=== PATIENT | male | born 1975 | race Hispanic/Latino ===

== ENCOUNTER 2020-10-08 12:01 | Emergency (ER) | payer BC, OTHER ==
[2020-10-08] MEDS ORDERED: NA CHLORIDE 0.9% 1,000 ML ONE (13:08)
[2020-10-08] MEDS ORDERED: HYDROCODONE/CHLORPHEN 5 ML/OSYR ONE (13:08)
[2020-10-08] MEDS ORDERED: ONDANSETRON 4 MG/2 ML VIAL ONE (13:08)
[2020-10-08 13:28] LABS: Absolute Lymphocytes (CBC) 0.7 K/uL (0.7-4.9); Basophils % 0.3 % (0-1.3); Hematocrit 47.6 % (39.6-49.0); Lymphocytes % 12.7 % (15.3-44.8); MPV 8.1 fL (7.6-11.3); RBC Red Blood Cell Count 5.55 M/uL (4.33-5.43)
--- NOTE | 2020-10-08 13:52 | RAD REPORT ---
EXAM DESCRIPTION: Claudia Single View10/08/2020 1:38 pm CLINICAL HISTORY: Cough COMPARISON: none FINDINGS: Mild bilateral pulmonary opacities suspected. Heart is normal size IMPRESSION: Mild bilateral pulmonary opacities suspected. This probably indicates a mild pneumonia
[2020-10-08 14:01] LABS: ALT/SGPT 74 U/L (12-78); AST/SGOT 57 U/L (15-37); Albumin 3.6 g/dL (3.4-5.0); Alkaline Phosphatase 65 U/L (45-117); BUN Blood Urea Nitrogen 10 mg/dL (7-18); Bicarbonate 27 mmol/L (21-32); Bilirubin Total 0.8 mg/dL (0.2-1.0); Glucose Level 99 mg/dL (74-106); Potassium 3.7 mmol/L (3.5-5.1); Protein, Total 8.1 g/dL (6.4-8.2); Sodium Level 138 mmol/L (136-145)
[2020-10-08 14:14] LABS: Urine Blood Negative (Negative); Urine Glucose Negative (Negative); Urine Protein Negative (Negative); Urine pH 6.5 (5.0-7.0)
--- NOTE | 2020-10-08 15:33 | ER ---
Nurse's Notes [facility] Name: Héctor Tee Age: 45 yrs Sex: Male : 1975 Arrival Date: 10/08/2020 Time: 12:07 Bed 19 Private MD: Diagnosis: Pneumonia due to SARS-associated coronavirus Presentation: 10/08 12:09 Chief complaint: Cough, congestion, SOB, nausea, diarrhea, and fever x 1 week. Tested hb COVID + 10/03. Coronavirus screen: Client reports previous positive COVID test result. Date of collection: October 03, 2020. Ebola Screen: No symptoms or risks identified at this time. Initial Sepsis Screen: Does the patient meet any 2 criteria? No. Patient's initial sepsis screen is negative. Does the patient have a suspected source of infection? No. Patient's initial sepsis screen is negative. Risk Assessment: Do you want to hurt yourself or someone else? Patient reports no desire to harm self or others. Onset of symptoms was October 01, 2020. 12:09 Method Of Arrival: Ambulatory hb 12:09 Acuity: DANII 3 hb Historical: - Allergies: 12:11 No Known Allergies; hb - Home Meds: 12:11 None [Active]; hb - PMHx: 12:11 None; hb - PSHx: 12:11 None; hb - Immunization history:: Adult Immunizations up to date. - Social history:: Smoking status: Patient denies any tobacco usage or history of. Screenin:32 Abuse screen: Denies threats or abuse. Denies injuries from another. Nutritional zb screening: No deficits noted. Tuberculosis screening: No symptoms or risk factors identified. Fall Risk None identified. Assessment: 13:32 General: Appears in no apparent distress. uncomfortable, Behavior is calm, cooperative, zb appropriate for age, Reports chills for >3 days, fever for > 3 days, feeling ill for > 3 days, fatigue for >3 days. Pain: Complains of pain in chest. Neuro: Level of Consciousness is awake, alert, obeys commands, Oriented to person, place, time, situation. Cardiovascular: Patient's skin is warm and dry. Respiratory: Reports shortness of breath at rest Airway is patent Respiratory effort is even, unlabored, Respiratory pattern is regular, symmetrical. GI: Abdomen is flat, Bowel sounds present X 4 quads. hyperactive in right upper quadrant, left upper quadrant, right lower quadrant and left lower quadrant Reports diarrhea. Derm: Skin is intact, is healthy with good turgor, Skin is dry, Skin is normal, Skin temperature is warm. Musculoskeletal: Circulation, motion, and sensation intact. Range of motion: intact in all extremities. 14:30 Reassessment: Patient appears in no apparent distress at this time. Patient and/or zb family updated on plan of care and expected duration. Pain level reassessed. Patient is alert, oriented x 3, equal unlabored respirations, skin warm/dry/pink. 15:28 Reassessment: Patient appears in no apparent distress at this time. Patient and/or zb family updated on plan of care and expected duration. Pain level reassessed. Patient is alert, oriented x 3, equal unlabored respirations, skin warm/dry/pink. Vital Signs: 12:09 BP 132 / 92; Pulse 102; Resp 20; Temp 98.2; Pulse Ox 100% on R/A; Pain 8/10; hb 13:46 BP 123 / 60; Pulse 89; Resp 16; Pulse Ox 98% on R/A; zb 14:09 BP 120 / 80; Pulse 98; Resp 18; Temp 99.4(O); Pulse Ox 98% on R/A; zb 15:00 BP 128 / 80; Pulse 89; Resp 18; Pulse Ox 100% on R/A; zb ED Course: 12:07 Patient arrived in ED. ds1 12:11 Triage completed. hb 12:11 Arm band placed on. hb 12:26 Huma Vogt MD is Attending Physician. ma2 12:26 Balwinder Marte NP is PHCP. pm1 12:32 Charity Martinez RN is Primary Nurse. zb 12:50 Strep swab sent to lab. Inserted saline lock: 20 gauge in right antecubital area, using jp3 aseptic technique. Blood collected. 12:50 Patient maintains SpO2 saturation greater than 95% on room air. jp3 13:03 Bed in low position. Call light in reach. Side rails up X 1. Verbal reassurance given. jp3 Pulse ox on. NIBP on. 13:38 Chest Single View XRAY In Process Unspecified. EDMS 15:54 No provider procedures requiring assistance completed. IV discontinued, intact, zb bleeding controlled, No redness/swelling at site. Pressure dressing applied. Administered Medications: 12:52 Drug: NS 0.9% 1000 ml Route: IV; Rate: 1000 ml; Site: right antecubital; vg1 14:00 Follow up: Response: No adverse reaction; IV Status: Completed infusion; IV Intake: zb 1000ml 12:53 Drug: Zofran (Ondansetron) 4 mg Route: IVP; Site: right antecubital; vg1 15:54 Follow up: Response: No adverse reaction; Marked relief of symptoms zb 12:54 Drug: Tussionex Pennkinetic ER (chlorpheniramine-hydrocodone) 5 ml Route: PO; vg1 15:53 Follow up: Response: No adverse reaction; Marked relief of symptoms zb Intake: 14:00 IV: 1000ml; Total: 1000ml. zb Outcome: 15:33 Discharge ordered by . pm1 15:54 Discharged to home ambulatory. zb 15:54 Condition: stable 15:54 Discharge instructions given to patient, Instructed on discharge instructions, follow up and referral plans. medication usage, Demonstrated understanding of instructions, follow-up care, medications, Prescriptions given X 3. 15:55 Patient left the ED. zb Signatures: Dispatcher [employer] EDMI Ceci Goff ds1 Balwinder Marte, BROADCAST OPERATIONS TECHNICIAN BROADCAST OPERATIONS TECHNICIAN pm1 Andree Simeon, Huma Slade RN, MD MD ma2 Zachery Earl jp3 Diana Giron RN RN vg1 Charity Martinez RN RN zb
--- NOTE | 2020-10-08 15:33 | EDPHYS ---
Physician Documentation [facility] Name: Héctor Tee Age: 45 yrs Sex: Male : 1975 Arrival Date: 10/08/2020 Time: 12:07 Bed 19 Private MD: ED Physician Huma Vogt HPI: 10/08 12:49 This 45 yrs old Male presents to ER via Ambulatory with complaints of Flu pm1 Symptoms. 12:49 The patient or guardian reports cough, congestion, and shortness of breath. Onset: The pm1 symptoms/episode began/occurred 9 day(s) ago. Severity of symptoms: in the emergency department the symptoms are actually worse. Modifying factors: The symptoms are alleviated by nothing, the symptoms are aggravated by nothing. Associated signs and symptoms: Pertinent positives: diarrhea, fever, [place], Pertinent negatives: chest pain, ear ache, sore throat, vomiting, abdominal pain. The patient has been recently seen at an urgent care, for similar complaints, diagnosed with covid 1 week ago. Historical: - Allergies: 12:11 No Known Allergies; hb - Home Meds: 12:11 None [Active]; hb - PMHx: 12:11 None; hb - PSHx: 12:11 None; hb - Immunization history:: Adult Immunizations up to date. - Social history:: Smoking status: Patient denies any tobacco usage or history of. ROS: 12:49 Eyes: Negative for injury, pain, redness, and discharge, ENT: Negative for injury, pm1 pain, and discharge, Neck: Negative for injury, pain, and swelling, Cardiovascular: Negative for chest pain, palpitations, and edema. 12:49 Back: Negative for injury and pain, : Negative for injury, bleeding, discharge, and swelling, MS/Extremity: Negative for injury and deformity, Skin: Negative for injury, rash, and discoloration, Neuro: Negative for headache, weakness, numbness, tingling, and seizure. 12:49 Constitutional: Positive for body aches, fever, decreased appetite. 12:49 Respiratory: Positive for cough, shortness of breath, Negative for wheezing. 12:49 Abdomen/GI: Positive for nausea, diarrhea, Negative for abdominal pain, vomiting. Exam: 12:49 Constitutional: This is a well developed, well nourished patient who is awake, alert, pm1 and in no acute distress. Head/Face: Normocephalic, atraumatic. 12:49 Neck: Trachea midline, no thyromegaly or masses palpated, and no cervical lymphadenopathy. Supple, full range of motion without nuchal rigidity, or vertebral point tenderness. No Meningismus. Cardiovascular: Regular rate and rhythm with a normal S1 and S2. No gallops, murmurs, or rubs. Normal PMI, no JVD. No pulse deficits. Respiratory: Lungs have equal breath sounds bilaterally, clear to auscultation and percussion. No rales, rhonchi or wheezes noted. No increased work of breathing, no retractions or nasal flaring. 12:49 Back: No spinal tenderness. No costovertebral tenderness. Full range of motion. Skin: Warm, dry with normal turgor. Normal color with no rashes, no lesions, and no evidence of cellulitis. MS/ Extremity: Pulses equal, no cyanosis. Neurovascular intact. Full, normal range of motion. 12:49 Eyes: Exam is negative for acute changes, Extraocular movements: intact throughout, Conjunctiva: normal, Lids and lashes: appear normal. 12:49 ENT: External ear(s): are unremarkable, Ear canal(s): are normal, TM's: are normal, Posterior pharynx: is normal, airway is patent, no erythema, no exudate, no peritonsilar mass, no pooling of secretions, no swelling. 12:49 Abdomen/GI: Exam negative for acute changes, Inspection: abdomen appears normal, Palpation: abdomen is soft and non-tender, in all quadrants. 12:49 Neuro: Exam negative for acute changes, Orientation: is normal, Mentation: is normal, Motor: is normal, moves all fours. Vital Signs: 12:09 BP 132 / 92; Pulse 102; Resp 20; Temp 98.2; Pulse Ox 100% on R/A; Pain 8/10; hb 13:46 BP 123 / 60; Pulse 89; Resp 16; Pulse Ox 98% on R/A; zb 14:09 BP 120 / 80; Pulse 98; Resp 18; Temp 99.4(O); Pulse Ox 98% on R/A; zb 15:00 BP 128 / 80; Pulse 89; Resp 18; Pulse Ox 100% on R/A; zb MDM: 12:26 Patient medically screened. ma2 15:27 Data reviewed: vital signs. Data interpreted: Pulse oximetry: on room air is 98 %. pm1 Interpretation: normal. Counseling: I had a detailed discussion with the patient and/or guardian regarding: the historical points, exam findings, and any diagnostic results supporting the discharge/admit diagnosis, lab results, radiology results, the need for outpatient follow up, to return to the emergency department if symptoms worsen or persist or if there are any questions or concerns that arise at home. 15:35 ED course: [employer] aware reviewed. No data found. pm1 10/08 12:36 Order name: CBC with Diff; Complete Time: 13:37 pm1 10/08 12:36 Order name: CMP; Complete Time: 14:05 pm 10/08 12:36 Order name: Chest Single View XRAY; Complete Time: 14:05 pm 10/08 12:36 Order name: Strep; Complete Time: 13:38 pm1 10/08 13:38 Order name: Throat Culture [facility] 10/08 14:14 Order name: Urine Dipstick-Ancillary [facility] 10/08 12:36 Order name: IV Saline Lock; Complete Time: 12:55 pm1 10/08 12:36 Order name: Urine Dipstick-Ancillary (obtain specimen); Complete Time: 12:54 pm1 10/08 12:37 Order name: Droplet/Contact Precautions; Complete Time: 12:49 pm1 10/08 12:37 Order name: Labs collected and sent; Complete Time: 12:49 pm 10/08 12:37 Order name: O2 Per Protocol; Complete Time: 12:50 pm1 Administered Medications: 12:52 Drug: NS 0.9% 1000 ml Route: IV; Rate: 1000 ml; Site: right antecubital; vg1 14:00 Follow up: Response: No adverse reaction; IV Status: Completed infusion; IV Intake: zb 1000ml 12:53 Drug: Zofran (Ondansetron) 4 mg Route: IVP; Site: right antecubital; vg1 15:54 Follow up: Response: No adverse reaction; Marked relief of symptoms zb 12:54 Drug: Tussionex Pennkinetic ER (chlorpheniramine-hydrocodone) 5 ml Route: PO; vg1 15:53 Follow up: Response: No adverse reaction; Marked relief of symptoms zb Disposition: 10/08/20 15:33 Discharged to Home. Impression: Pneumonia due to SARS-associated coronavirus. - Condition is Stable. - Discharge Instructions: COVID-19. - Prescriptions for Albuterol Sulfate 90 mcg/actuation - inhale 1-2 puff by INHALATION route every 4-6 hours; 1 Inhaler. Guaifenesin AC 10- 100 mg/5 mL Oral Liquid - take 10 milliliter by ORAL route every 4 hours As needed; 240 milliliter. Zofran ODT 4 mg Oral tablet,disintegrating - place 1 tablet by TRANSLINGUAL route every 8 hours As needed; 15 tablet. - Medication Reconciliation Form, Thank You Letter, Antibiotic Education, Prescription Opioid Use form. - Follow up: Emergency Department; When: As needed; Reason: Worsening of condition. Follow up: Private Physician; When: 2 - 3 days; Reason: Recheck today's complaints, Continuance of care, Re-evaluation by your physician. - Problem is new. - Symptoms have improved. Signatures: Dispatcher [employer] EDMS Balwinder Marte, PERMIT REVIEW ASSISTANT PERMIT REVIEW ASSISTANT pm1 Andree Simeon, RN RN hb Huma Vogt MD MD ma2 Diana Giron RN RN vg1 Charity Martinez RN RN zb Corrections: (The following items were deleted from the chart) 15:55 15:33 10/08/2020 15:33 Discharged to Home. Impression: Pneumonia due to SARS-associated zb coronavirus. Condition is Stable. Forms are Medication Reconciliation Form, Thank You Letter, Antibiotic Education, Prescription Opioid Use. Follow up: Emergency Department; When: As needed; Reason: Worsening of condition. Follow up: Private Physician; When: 2 - 3 days; Reason: Recheck today's complaints, Continuance of care, Re-evaluation by your physician. Problem is new. Symptoms have improved. pm1
[2020-10-08 16:06] VITALS: TEMP 99.4
[2020-10-08 16:07] VITALS: BP 128/80; O2SAT 100
== END 2020-10-08 15:55 | disposition home or self-care (01) ==
LOC: ER 12:01
DX: U07.1 COVID-19 (principal); J12.82 Pneumonia due to coronavirus disease 2019
CPT/HCPCS: 87070; 85025; 36415; 87081; 81003; 80053; 71045; J7030; J2405; 96361; 96374; 99284